=== PATIENT | male | born 1985 | race African-American/Black ===

== ENCOUNTER 2020-06-25 12:55 | Emergency (ER) | payer SELFPAY ==
[~2020-06-25] VITALS: Ht 182.9 cm; Wt 98.9 kg
--- NOTE | 2020-06-25 13:08 | NUR ---
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 THE PATIENT IS ALERT AND ORIENTED X3. DENIES PAIN. IN ROOM AIR AND DENIES SOB. RESPIRATION REGULAR AND UNLABORED. OFFICERS AT THE BEDSIDE. WILL CONTINUE TO MONITOR.
--- NOTE | 2020-06-25 13:28 | NUR ---
SEEN AND EXAMINED BY .
[2020-06-25 13:54] LABS: BASOPHILS % (AUTO) 0.8 % (0.0-2.0); EOSINOPHILS % (AUTO) 7.3 % (0.0-6.0); HEMATOCRIT 41 % (39-51); HEMOGLOBIN 12.9 g/dL (13.5-17.5); LYMPHOCYTES # (AUTO) 1.2 /CMM (0.8-4.8); LYMPHOCYTES % (AUTO) 24.8 % (20.0-44.0); MEAN CORPUSCULAR HGB CONC 32 g/dl (31.0-36.0); MEAN CORPUSCULAR VOLUME 88 fL (80-96); MONOCYTES # (AUTO) 0.6 /CMM (0.1-1.30); NEUTROPHILS # (AUTO) 2.6 /CMM (1.8-8.9); NEUTROPHILS % (AUTO) 54.1 % (43.0-81.0); PLATELET COUNT (AUTO) 214 /CMM (150-450); RED BLOOD CELL COUNT(AUTO) 4.62 MIL/uL (4.5-6.0); WHITE BLOOD COUNT (AUTO) 4.7 K/uL (4.3-11.0)
[2020-06-25 14:43] LABS: CALCIUM, SERUM 8.6 mg/dL (8.5-10.1); CREATININE 0.5 mg/dL (0.6-1.3); POTASSIUM 4.3 mmol/L (3.5-5.1)
[2020-06-25 15:11] LABS: BILIRUBIN,TOTAL 0.2 mg/dL (0.2-1.0); TOTAL PROTEIN, SERUM 6.5 g/dL (6.4-8.2)
[2020-06-25 15:12] LABS: ALBUMIN 2.5 g/dL (3.4-5.0); BILIRUBIN,DIRECT 0.1 mg/dL (0.0-0.2)
--- NOTE | 2020-06-25 15:36 | NUR ---
Patient discharged in custody in stable condition. Written and verbal after care instructions given. Patient verbalizes understanding of instruction.
[2020-06-25 15:37] VITALS: BP 121/64
== END 2020-06-25 16:07 ==
LOC: ER 13:06
DX: Z02.89 Encounter for other administrative examinations (principal)
CPT/HCPCS: 36415; 80048-TC; 80076-TC; 85025-TC